=== PATIENT | male | born 2000 | race Caucasian/White ===

== ENCOUNTER 2018-12-04 20:28 | Emergency (ER) | payer OTHER, SELFPAY ==
[2018-12-04 20:29] VITALS: BP 148/79; PULSE 74; RESP 16; TEMP 37.2; O2SAT 100; BMI 25.0
--- NOTE | 2018-12-04 20:35 | RAD_ITS ---
STUDY: X-RAY - LEFT TIBIA AND FIBULA REASON FOR EXAM: Male, 18 years old. Injury. TECHNIQUE: 2 view(s) of the tibia and fibula were obtained. COMPARISON: None. FINDINGS: Normal visualized tibia. Normal visualized fibula. There is no demonstrated acute fracture. The soft tissue structures are unremarkable. RAD/Tibia & Fibula 2 Views IMPRESSION: Normal x-ray examination of the tibia and fibula. Electronically Signed: Eric Rose MD at 20:59 EDT , Service support ,
--- NOTE | 2018-12-04 20:40 | RAD_ITS ---
STUDY: X-RAY - LEFT ANKLE REASON FOR EXAM: Male, 18 years old. Injury. Pain. TECHNIQUE: 3 view(s) of the ankle. COMPARISON: None. FINDINGS: Normal visualized distal tibia and fibula. Normal medial and lateral malleoli. Normal tibiotalar articulation and ankle mortise. Normal visualized talus and calcaneus. The visualized subtalar, talonavicular, calcaneocuboid and tarsal articulations are normal. There is no demonstrated fracture. The soft tissue structures are unremarkable. RAD/Ankle min 3 Views IMPRESSION: Normal x-ray examination of the ankle. Electronically Signed: Eric Rose MD at 20:58 EDT , Service support ,
--- NOTE | 2018-12-04 21:32 | US_ITS ---
HISTORY: S/P INJURY TO LT WEST TO ANKLE, CALF SWELLING-GETTING BETTER EXAMINATION: US Venous Duplex LE Unilat / Limited: TECHNIQUE: Pagan scale, pulse wave, and color flow Doppler imaging was performed of the lower extremity venous system. The left greater saphenous, common femoral, femoral, and popliteal veins were interrogated. COMPARISON: None FINDINGS: There is normal compression, augmentation, and signal throughout the visualized deep lower extremity veins. No mass or fluid collection. US/Venous Duplex Imag/Limited/Uni IMPRESSION: No sonographic evidence of deep venous thrombosis. at 2210 Reported and signed by: Garry Barroso MD Electronically Signed: Garry Barroso, at 22:08 EDT Tel , Service support ,
--- NOTE | 2018-12-04 22:21 | ED.VISSUMM ---
- ER Visit Summary Date of Service: 12/04/18 Chief Complaint: [Left leg injury] History of Present Illness: The patient is a 18 M [presents to the emergency department complaint left leg injury occurred initially 2 weeks ago. Patient states that he was playing soccer when he was accidentally kicked in the left calf. Since that time patient's been having pain as well as swelling and bruising. Patient denies any chest pain or shortness of breath. At times patient is noticed some numbness to the leg especially today after working for 10 hours and being on his feet.] Physical Examination: [HEENT-PERRLA, EOMI. Cranial nerves II through XII grossly intact. TMs clear. Mucous membranes moist. No adenopathy. Cardiovascular-regular rate and rhythm without murmur or ectopy Lungs-clear to auscultation, chest wall stable without crepitus or subcu emphysema Abdomen-normoactive bowel sounds, soft, nontender, no rebound or rigidity, no peritoneal signs. Extremities-intact ?4, normal range of motion, normal pulses. Left leg-patient has diffuse soft tissue swelling to the left calf and ankle. He has ecchymosis and bruising noted. The Achilles tendon is intact. He is got a normal Overton's test. He is neurovascular intact distally.] Test Results: [X-rays of the ankle and tib-fib x-rays were obtained via protocol by nursing staff. These were read as normal. Venous duplex was obtained and this was negative for DVT.] Emergency Department Course and Treatment: [Patient did not anything for pain.] Treatment Plan: [Patient will be given a prescription for naproxen and will be referred to orthopedics for follow-up.] Disposition: [Discharged home in stable condition] Impression: [Contusion left leg] This note was generated with [employer] dictation software. It may contain incorrect words, spelling, and punctuation that were not noted in review of the chart prior to signing ED Disposition - Plan for ED Patient: Referrals: Sharon Serna MD [Primary Care Provider] -
--- NOTE | 2018-12-04 22:23 | ED.DEP ---
ED Disposition - Plan for ED Patient: Instructions: ED Contusion Lower Ext Prescriptions: Naproxen [Naprosyn] 500 mg PO BID PRN #20 tab Referrals: Sharon Serna MD [Primary Care Provider] - Chago Hancock DO [STAFF PHYSICIAN] - 5-7 Days
[2018-12-04 22:26] VITALS: BP 108/75; PULSE 76; RESP 16; O2SAT 99
[2018-12-04] MEDS: Naproxen 500 MG Tablet PO (22:33)
== END 2018-12-04 22:33 | disposition home or self-care (01) ==
LOC: ED 22:06
PROVIDERS: Emergency Provider Emergency Medicine; Family Provider Pediatrics; PCP Pediatrics
DX: S80.12XA Contusion of left lower leg, initial encounter (principal); W50.0XXA Accidental hit or strike by another person, initial encounter; Y93.66 Activity, soccer; Y92.322 Soccer field as the place of occurrence of the external cause; Y99.8 Other external cause status
CPT/HCPCS: 73590; 73610; 93971; 99282

== ENCOUNTER 2021-08-29 18:06 | Emergency (ER) | payer SELFPAY ==
[2021-08-29 18:07] VITALS: BP 147/84; PULSE 73; RESP 16; TEMP 36.7; O2SAT 99; BMI 28.1
[2021-08-29] MEDS: Smz/Tmp Ds Tablet 1 TABLET PO (18:27)
--- NOTE | 2021-08-29 18:33 | EX.ED.UPPERE ---
HPI History of Present Illness Chief Complaint: Wound Check Narrative Narrative: 21-year-old male presenting with a pimple on the left forearm. He states it started 2 days ago. He states he continually picks at it and has been squeezing it. He now has erythema on the skin surrounding this area. Patient denies any systemic signs or symptoms. 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 PFSH PFSH Medical History no medical history Home Medications sulfamethoxazole-trimethoprim [Bactrim DS] 1 tab PO BID 7 Days #14 tab 08/29/21 [Rx Last Taken Unknown] Allergy/AdvReac Type Severity Reaction Status Date / Time No Known Allergies Allergy Verified 08/29/21 18:09 Surgical History no surgical history Social History Smoking Status: Never smoker ROS ROS ED Constitutional Constitutional ED: Denies chills, fever(s) or sweats Eyes Eyes: Denies blurry vision or change in vision ENT ENT ED: Denies ear pain or sore throat Cardiovascular Cardiovascular: Denies chest pain, palpitations or racing heartbeat Respiratory/Chest Respiratory/Chest: Denies cough, dyspnea or sputum Gastrointestinal Gastrointestinal: Denies abdominal pain, constipation, diarrhea, nausea or vomiting Genitourinary Genitourinary ED: Denies dysuria, hematuria or urinary frequency Musculoskeletal Musculoskeletal: Denies arthralgias, myalgias or neck pain Integumentary Reports rash; Denies abscess or Abrasions Neurologic Neurologic: Denies headache(s), paresthesias or weakness Psychiatric Psychiatric: Denies anxiety, depression, suicidal ideation or suicidal thoughts Endocrine Endocrinology: Denies polydipsia or polyuria EXAM Physical Exam Const Vital Signs: 08/29/21 18:07 Temperature 98.1 F Temperature Source Temporal Pulse Rate 73 Respiratory Rate 16 Blood Pressure 147/84 H Blood Pressure Mean 105 Pulse Ox 99 Oxygen Delivery Method Room Air General Appearance ED: Negative for pallor HEENT Reports normocephalic, head/scalp atraumatic and moist mucous membranes normocephalic Eyes PERRL and EOMs intact bilaterally Neck no lymphadenopathy and supple Resp normal respiratory effort Cardio regular rate and regular rhythm GI normal to inspection, nondistended, normoactive bowel sounds Narrative: Deferred Extremity Extremity Narrative: 3 cm circular area on the left forearm volarly with a small pimple in the center. This is not a fluctuant mass or abscess. No lymphangitic streaking. General Extremety ED: Yes tenderness Neuro oriented x3 and CN's II-XII intact bilaterally Sensorium / Orientation: alert Motor Exam: strength 5/5 throughout Psych mental status grossly normal Attitude: No agitated Skin no rashes or lesions noted and no wounds Skin Narrative: As document above General Skin Exam: Negative for jaundice or pallor MDM MDM MDM Narrative Medical decision making narrative: Patient is a small pimple in the center of his forearm. He is surrounding erythema and is concerned for MRSA. Patient counseled he should be soaking this. He states he has not been applying anything and I recommended that after he soaks that he applies bacitracin dressing. Since he has starting cellulitis I will start him on Bactrim. Patient is to follow-up with his PCP to ensure resolution. Impression: 1. Cellulitis Discharge Plan Triage Chief Complaint: Wound Check ED Provider: Dagoberto Peralta Dx/Rx/DC Orders Instructions: ED Cellulitis Prescriptions: New sulfamethoxazole-trimethoprim [Bactrim DS] 800-160 mg tablet 1 tab PO BID 7 Days Qty: 14 RF: 0 Primary Care Provider: Sharon Serna Referrals: Sharon Serna MD [Primary Care Provider] - Disposition Disposition: Home, Self Care
== END 2021-08-29 18:37 | disposition home or self-care (01) ==
PROVIDERS: Emergency Provider Student in an Organized Health Care Education/Training Program; PCP Pediatrics
DX: L03.114 Cellulitis of left upper limb (principal)
CPT/HCPCS: 99283

== ENCOUNTER 2022-11-01 16:48 | Emergency (ER) | payer SELFPAY ==
[2022-11-01 16:49] VITALS: BP 157/103; PULSE 98; RESP 14; TEMP 36.8; O2SAT 100; BMI 26.6
[2022-11-01 17:06] VITALS: BP 150/99; BP 151/85; PULSE 101; PULSE 95; RESP 22; O2SAT 96; O2SAT 97
--- NOTE | 2022-11-01 17:07 | EX.ED.UPPERE ---
HPI History of Present Illness HPI Narrative: Presents with left shoulder dislocation that occurred today. Patient states he was at a high school wrestling practice trying to help a high school wrestler prepare for tournament. Patient states that his shoulder got hyperextended and the other wrestler fell on top of it causing it to dislocate. Patient states he has dislocated that shoulder in the past. Patient states he tried to reduce it immediately but was not successful. Patient denies any paresthesias or weakness. Patient states his pain is worse with any movement. Patient denies any head injury or loss of consciousness. Patient denies any other injuries. Chief Complaint: Upper Extremity Injury Informant: patient Occured/Mechanism Mechanism/Context: Yes direct blow Onset/Context/Timing Onset: Today Context: Sudden Onset Timing: Continuous Quality of Pain: Aching Location: Left shoulder Worsened by: Movement Relieved by: Nothing Associated Symptoms Associated Symptoms: Negative for Parasthesia, Weakness or Loss of Funtion PFSH PFS Medical History Hypertension Home Medications sulfamethoxazole 800 mg-trimethoprim 160 mg tablet (Bactrim DS) 1 tab PO BID 7 days #14 tabs 08/29/21 [Rx Last Taken Unknown] Allergy/AdvReac Type Severity Reaction Status Date / Time No Known Allergies Allergy Verified 11/01/22 16:51 Surgical History no surgical history no surgical history Social History Smoking Status: Never smoker ROS ROS ED Constitutional Constitutional ED: Denies chills or fever(s) Eyes Eyes: Denies blurry vision or change in vision ENT ENT ED: Denies rhinorrhea or sore throat Cardiovascular Cardiovascular: Denies chest pain or palpitations Respiratory/Chest Respiratory/Chest: Denies cough or dyspnea Gastrointestinal Gastrointestinal: Denies nausea or vomiting Genitourinary Genitourinary ED: Denies dysuria or hematuria Musculoskeletal Musculoskeletal: Denies back pain or neck pain Integumentary Denies abscess or rash Neurologic Neurologic: Denies headache(s) or weakness Allergic/Immunologic Allergic/Immunologic ED: Denies mouth swelling or urticaria EXAM Physical Exam Const Vital Signs: 11/01/22 16:49 Temperature 98.3 F Temperature Source Temporal Pulse Rate 98 Respiratory Rate 14 Blood Pressure 157/103 H Blood Pressure Mean 121 Pulse Ox 100 Oxygen Delivery Method Room Air Positive well nourished and well developed General Appearance ED: well developed and NAD HEENT Reports moist mucous membranes Neck full ROM and supple Extremity Extremity Narrative: There is tenderness and deformity to the left shoulder. Range of motion was limited in all motions of the left shoulder secondary to pain. Radial pulses are equal bilaterally. Strength is 5/5 in the radial, median, and ulnar nerves. Sensation was intact to light touch in the radial, median, ulnar, and axillary areas. Neuro oriented x3, CN's II-XII intact bilaterally, moves all extremities, no focal motor deficits and no sensory deficits noted Sensorium / Orientation: alert Motor Exam: strength 5/5 throughout Psych mental status grossly normal MDM MDM MDM Narrative Medical decision making narrative: Differential diagnosis includes shoulder dislocation, shoulder separation, sprain, and fracture. X-rays of the left shoulder will be obtained to assess for dislocation and fracture. Radiography Diagnostic Testing: X-rays of the left shoulder were obtained. There are 2 views. On my independent interpretation, there is a subcoracoid dislocation of the left shoulder. There is no acute fracture noted. Radiologist also interpreted the x-rays and agrees. Repeat x-rays of the left shoulder were obtained. There is 1 view. On my independent interpretation, there is good reduction of the prior dislocation. There is no acute fracture noted. Radiologist also interpreted the x-rays and agrees. Treatment and Re-Evaluation Narrative: IV line was established. Informed consent was obtained. Patient was given the opportunity ask any further questions about the procedure. He had no further questions. Patient was placed on continuous cardiac and pulse oximeter monitors. Patient was given a dose of propofol. The left shoulder was reduced using traction countertraction technique. Patient tolerated procedure well. Sling and swath was applied. Neurovascular exam was intact after the procedure. Patient was instructed to follow-up with his primary care physician in 5 to 7 days. Patient was also given referral for orthopedics. Patient was instructed to return if worse in any way. Incidentally, the patient stated that he has been noncompliant with his antihypertensive medications. Patient was instructed to start taking his antihypertensive medications as prescribed. Patient was advised of the risks of uncontrolled hypertension including stroke and heart attack. Patient understood and was agreeable with the plan. All questions were answered. Procedures Procedural Sedation 1 (Initial Baseline): Consent Signed: Yes Any Problems With Anesthesia: No You/Your family experience fever (hyperthermia) w/anesthesia: No Sedation medication: Propofol Dose: 130 Route: IV Mallampati Score: Class II ASA Classification: I Discharge Plan Triage Chief Complaint: Upper Extremity Injury ED Provider: Stew Boyce Dx/Rx/DC Orders Clinical Impression: Anterior dislocation of left shoulder, Hypertension Instructions: ED Dislocation: Shoulder (Reduced) Prescriptions: No Action sulfamethoxazole-trimethoprim [Bactrim DS] 800-160 mg tablet 1 tab PO BID 7 Days Qty: 14 0RF Primary Care Provider: Sharon Serna Referrals: Sharon Serna MD [Primary Care Provider] - 5-7 Days Chago Hancock DO [Med Staff - Active Staff] - 5-7 Days Disposition Disposition: Home, Self Care
--- NOTE | 2022-11-01 17:15 | RAD_ITS ---
STUDY: X-RAY - LEFT SHOULDER REASON FOR EXAM: Male, 22 years old. Injury. Pain. TECHNIQUE: 2 view(s) of the shoulder. COMPARISON: None. FINDINGS: Anterior dislocation of the glenohumeral joint. Normal acromioclavicular joint. Normal acromion. Normal humeral head and visualized proximal humerus. The soft tissue structures are unremarkable. Normal visualized pulmonary apex. RAD/Shoulder min 2 Views IMPRESSION: Anterior dislocation of the glenohumeral joint. Electronically Signed: Zbigniew Grayson DO at 17:43 EST ,
[2022-11-01 17:45] VITALS: BP 141/86; O2SAT 95
[2022-11-01] MEDS: Propofol 200 MG/20 ML Vial IV BOLUS (17:46)
[2022-11-01 17:50] VITALS: BP 155/92; O2SAT 97
[2022-11-01 17:55] VITALS: BP 138/81; O2SAT 96
--- NOTE | 2022-11-01 18:00 | RAD_ITS ---
STUDY: X-RAY - LEFT SHOULDER REASON FOR EXAM: Male, 22 years old. Post reduction shoulder dislocation. TECHNIQUE: 1 view(s) of the shoulder. COMPARISON: Left shoulder, November 01, 2022 (1710 hours). FINDINGS: Restorationist of the glenohumeral articulation. Normal acromioclavicular joint. Normal acromion. No visualized fracture. Normal humeral head and visualized proximal humerus. The soft tissue structures are unremarkable. Normal visualized pulmonary apex. RAD/Shoulder One View IMPRESSION: Successful reduction of the anterior dislocation of the glenohumeral joint noted on the earlier study. Electronically Signed: Zbigniew Grayson DO at 18:31 EST ,
[2022-11-01 18:08] VITALS: BP 129/87; PULSE 80; RESP 16; O2SAT 96
== END 2022-11-01 18:15 | disposition home or self-care (01) ==
PROVIDERS: Emergency Provider Emergency Medicine; PCP Pediatrics; Visit Provider Emergency Medicine
DX: S43.015A Anterior dislocation of left humerus, initial encounter (principal); I10 Essential (primary) hypertension; W03.XXXA Other fall on same level due to collision with another person, initial encounter; Y93.72 Activity, wrestling
CPT/HCPCS: 23650; 73020; 73030; 96374; 99285; J7030; A4216

== ENCOUNTER → 2024-12-20 | Outpatient (CLI) | payer SELFPAY | END | disposition home or self-care (01) | PROVIDERS: PCP Pediatrics; Referring Provider Advanced Practice Midwife; Visit Provider Advanced Practice Midwife | DX: Z31.440 Encounter of male for testing for genetic disease carrier status for procreative management (principal) | CPT/HCPCS: 36415 ==